=== PATIENT | female | born 1985 | race Two or more races ===

== ENCOUNTER 2023-10-22 12:47 | Inpatient (IN) | payer OTHER ==
[~2023-10-22] VITALS: Ht 160 cm; Wt 73.5 kg
[2023-11-03] MEDS ORDERED: MORPHINE SULFATE 4 MG/ML VIAL IV PRN (03:30)
[2023-11-03] MEDS ORDERED: RINGERS SOLUTION,LACTATED 1,000 ML IV SCH (03:30)
[2023-11-03 04:20] LABS: HEMATOCRIT 34.2 % (36.0-45.00); MEAN CELL VOLUME 85.2 fL (80.00-100.00); MEAN CORPUSCULAR HEMOGLOBIN 28.1 pg (27.00-32.0); PLATELET COUNT 275 K/uL (150-450); RED BLOOD COUNT 4.01 M/uL (4.00-6.00); RED CELL DISTRIBUTION WIDTH 17.7 % (11.5-14.5)
[2023-11-03 04:29] LABS: HEMOGLOBIN 11.3 g/dL (12.0-15.00)
[2023-11-03] MEDS ORDERED: PRENATAL TABLE1 EAC6 PO (04:34)
[2023-11-03 04:38] LABS: INR 0.97; PARTIAL THROMBOPLASTIN TIME 31.8 SECONDS (22.0-34.0); PROTHROMBIN TIME 10.6 SECONDS (9.0-11.5)
[2023-11-03 04:43] LABS: ALBUMIN 2.4 gm/dL (3.4-5.0); BILIRUBIN TOTAL 0.38 mg/dL (0.3-1.2); CALCIUM 8.5 mg/dL (8.5-10.1); CREATININE SERUM 0.57 mg/dL (0.55-1.02); GFR 120.01; GLOBULINA 3.8 G/DL (2.4-3.5); POTASSIUM 3.76 mEq/L (3.5-5.1); TOTAL PROTEIN 6.2 gm/dL (6.4-8.2)
[2023-11-03] MEDS ORDERED: OXYTOCIN 500 ML IV ONE (07:15)
[2023-11-03] MEDS ORDERED: OXYTOCIN 20 UNITS/500ML RL PIGGYBAG IV ONE (07:23)
[2023-11-03] MEDS ORDERED: ERYTHROMYCIN BASE 1 GM TUBE OP ONE (07:30)
[2023-11-03] MEDS ORDERED: LIDOCAINE HCL 1% 10ML VIAL ONE (07:30)
[2023-11-03] MEDS ORDERED: OXYTOCIN 20 UNITS/1000ML RL PIGGYBAG IV ONE ×2 (07:30→14:11)
[2023-11-03] MEDS ORDERED: CHLORHEXIDINE GLUCONATE 120 ML BOTTLE TOP ONE (07:30)
[2023-11-03] MEDS ORDERED: CHLORHEXIDINE GLUCONATE 120 ML BOTTLE TOP SCH (09:00)
[2023-11-03] MEDS ORDERED: IBUprofen 400 MG TABLET PO PRN (09:00)
[2023-11-03] MEDS ORDERED: ERYTHROMYCIN BASE 1 GM TUBE OP SCH (09:00)
[2023-11-03] MEDS ORDERED: OXYTOCIN 1,000 ML IV SCH (09:00)
[2023-11-03] MEDS ORDERED: METHYLERGONOVINE MALEATE 0.2 MG/ML AMPUL ONE (10:15)
[2023-11-03] MEDS ORDERED: METHYLERGONOVINE MALEATE 0.2 MG/ML AMPUL IM ONE (10:45)
[2023-11-03] MEDS ORDERED: MORPHINE SULFATE 4 MG/ML CARTRIDGE IV PRN (11:15)
[2023-11-04 07:05] LABS: HEMATOCRIT 34.2 % (36.0-45.00); HEMOGLOBIN 11.5 g/dL (12.0-15.00); MEAN CELL VOLUME 84.8 fL (80.00-100.00); MEAN CORPUSCULAR HEMOGLOBIN 28.4 pg (27.00-32.0); MEAN CORPUSCULAR HGB CONC 33.6 g/dl (32.0-36.0); PLATELET COUNT 270 K/uL (150-450); RED BLOOD COUNT 4.03 M/uL (4.00-6.00); RED CELL DISTRIBUTION WIDTH 17.8 % (11.5-14.5)
== END 2023-11-05 14:15 | disposition home or self-care (01) | DRG 807 ==
LOC: LDR 10-29 13:45 → OB/GYN 11-03 13:02
PROVIDERS: Obstetrics & Gynecology; ADMIT Obstetrics & Gynecology Maternal & Fetal Medicine; ATTEND Obstetrics & Gynecology Maternal & Fetal Medicine
PROC: 10E0XZZ Delivery of Products of Conception, External Approach (ICD-10-PCS; principal; 2023-11-03)
PROC: 4A1HXCZ Monitoring of Products of Conception, Cardiac Rate, External Approach (ICD-10-PCS; 2023-11-03)
DX: O80 Encounter for full-term uncomplicated delivery (principal); Z37.0 Single live birth; Z3A.40 40 weeks gestation of pregnancy; Z20.822 Contact with and (suspected) exposure to COVID-19

== ENCOUNTER 2023-10-27 11:27 | Outpatient (CLI) | payer OTHER | END 2023-10-27 12:33 | disposition home or self-care (01) | LOC: NST 11:27 | PROVIDERS: ATTEND Obstetrics & Gynecology | DX: Z34.83 Encounter for supervision of other normal pregnancy, third trimester (principal) ==

== ENCOUNTER 2023-10-30 10:26 | Outpatient (CLI) | payer OTHER | END 2023-10-30 12:15 | disposition home or self-care (01) | LOC: NST 10:26 | PROVIDERS: ATTEND Obstetrics & Gynecology | DX: Z34.83 Encounter for supervision of other normal pregnancy, third trimester (principal) ==

== ENCOUNTER 2023-10-31 16:23 | Outpatient (CLI) | payer OTHER | END 2023-10-31 16:53 | disposition home or self-care (01) | LOC: NST 16:23 | PROVIDERS: ATTEND Obstetrics & Gynecology | DX: Z34.83 Encounter for supervision of other normal pregnancy, third trimester (principal) ==